=== PATIENT | female | born 1995 | race African-American/Black ===

== ENCOUNTER 2017-03-13 09:18 | Day surgery (SDC) | payer BC, OTHER ==
[2017-03-12 09:44] VITALS: BMI 41.0
[2017-03-13] MEDS ORDERED: MIDAZOLAM HCL 2 MG/2 ML SINGLE DOSE VIAL ONE ×2 (12:06)
[2017-03-13] MEDS ORDERED: PROPOFOL 20 ML ONE ×4 (12:22)
[2017-03-13] MEDS ORDERED: LIDOCAINE HCL/PF 2% SDV 5ML VIAL ONE (12:24)
[2017-03-13] MEDS ORDERED: LIDOCAINE HCL 1%, 10 MG/ML (20ML VIAL) ONE (12:25)
[2017-03-13] MEDS ORDERED: LIDOCAINE HCL 1%, 10 MG/ML (20ML VIAL) IJ ONE (12:32)
[2017-03-13] MEDS ORDERED: LACTATED RINGERS SOLUTION 1,000 ML IV SCH (13:00)
[2017-03-13] MEDS ORDERED: PROMETHAZINE HCL 25 MG/1 ML VIAL IVPUSH PRN (13:00)
[2017-03-13] MEDS ORDERED: ONDANSETRON 4 MG/2 ML VIAL IVPUSH PRN (13:00)
[2017-03-13 14:03] VITALS: TEMP 97.9
[2017-03-13] MEDS ORDERED: oxyCODONE HCL 5 MG TABLET PO ONE (14:03)
[2017-03-13 15:40] VITALS: BP 131/61; PULSE 69
--- NOTE | 2017-03-14 08:01 | OP ---
DATE OF OPERATION: 03/13/2017 PREOPERATIVE DIAGNOSIS: Right breast mass. POSTOPERATIVE DIAGNOSIS: Right breast mass. PROCEDURE: Excision of right breast mass. SURGEON: Karuna Tam MD ANESTHESIA: Localized sedation. ESTIMATED BLOOD LOSS: Minimal. COMPLICATIONS: None. This was a sterile procedure. INDICATIONS FOR PROCEDURE: In the , patient presented with a palpable mass which was tender in the right breast 3:00 to 3:30 periphery. Initially, it was much larger with evidence of infection. She was treated with antibiotics, and it did decrease in size. However, continues to be palpable and tender. Therefore, my recommendation was an excision. The procedure was discussed with all her questions answered. PROCEDURE IN DETAIL: Patient was brought to [facility], taken into the operating room, and after IV sedation and IV antibiotics, the right breast was prepped and draped in usual sterile fashion. The area in the inner right breast was anesthetized with 1% lidocaine without epinephrine. An ellipse of skin was taken to include the punctum of this skin-based mass, and the entire mass was excised en bloc and sent to Pathology in formalin. Hemostasis was assured with electrocautery. The parenchyma approximated with interrupted 3-0 Vicryl. Skin approximated with interrupted 3-0 Vicryl and running 4-0 Biosyn. A sterile dressing with Steri-Strips and Tegaderm was applied. She tolerated the procedure well, was taken to recovery in good condition. Tyler [id number]
--- NOTE | 2017-03-16 15:46 | PATH ---
Surgical Pathology Report Patient Name: MACO REDDY [facility]. Rec. #: [id number] /Age/Gender: 1995 (Age: 21) / F Account: [id number] Location: [facility] SURGICAL Taken: 03/13/2017 Received: 03/13/2017 Reported: 03/16/2017 Physicians: Karuna Tam M.D. Specimen(s) Received RIGHT BREAST EXCISIONAL BIOPSY Clinical History Palpable mass, probably benign Final Diagnosis SKIN AND SOFT TISSUE, RIGHT BREAST, EXCISION: SKIN WITH DERMAL ABSCESS AND ASSOCIATED INFLAMED GRANULATION TISSUE. NO NEOPLASM IS IDENTIFIED. BENIGN SUBCUTANEOUS ADIPOSE TISSUE IS PRESENT. NO BREAST EPITHELIAL ELEMENTS IDENTIFIED. Electronically Signed Hans Vazquez M.D. Gross Description Received in formalin labeled "right breast excisional biopsy," is a 3.8 x 3.0 x 1.8 cm irregular, unoriented portion of fibroadipose tissue. The anterior surface displays a 2.8 x 0.8 cm brown, elliptical, unremarkable portion of skin. There is no needle localization wire present. Sectioning reveals a focal subepidermal lesion, possibly consistent with a cyst. Incident Response Analyst sections are sequentially submitted in 5 cassettes. Total formalin fixation time: Approximately 6 hours 03/13/201703/13/2017
== END 2017-03-13 14:50 | disposition home or self-care (01) ==
LOC: JASU-SURG 09:18
PROVIDERS: ATTEND Surgery
PROC: 0HBT0ZX Excision of Right Breast, Open Approach, Diagnostic (ICD-10-PCS; principal; 2017-03-13 11:00)
DX: D24.1 Benign neoplasm of right breast (principal)
CPT/HCPCS: 19120; 84703; 88304-TC; 94760